=== PATIENT | male | born 1960 | race Caucasian/White ===

== ENCOUNTER → 2023-12-21 07:08 | Outpatient (REF) | payer MEDICARE, OTHER, SELFPAY | LOC: RCS 07:08 | PROVIDERS: ATTENDING PHYSICIAN Internal Medicine Cardiovascular Disease; FAMILY PHYSICIAN Family Medicine | DX: R53.82 Chronic fatigue, unspecified (principal); I10 Essential (primary) hypertension; R55 Syncope and collapse | CPT/HCPCS: 93017 ==

== ENCOUNTER → 2024-01-04 09:13 | Outpatient (REF) | payer MEDICARE, OTHER, SELFPAY | LOC: RCS 09:13 | PROVIDERS: ATTENDING PHYSICIAN Internal Medicine Cardiovascular Disease; FAMILY PHYSICIAN Family Medicine | DX: R53.82 Chronic fatigue, unspecified (principal); I10 Essential (primary) hypertension | CPT/HCPCS: 93306 ==

== ENCOUNTER → 2024-12-17 06:24 | Outpatient (REF) | payer MEDICARE, OTHER, SELFPAY | LOC: RAD 06:24 | PROVIDERS: ATTENDING PHYSICIAN Student in an Organized Health Care Education/Training Program; FAMILY PHYSICIAN Family Medicine | DX: R10.32 Left lower quadrant pain (principal) | CPT/HCPCS: 74177; Q9967 ==

== ENCOUNTER 2025-01-15 06:25 | Day surgery (SDC) | payer MEDICARE, OTHER, SELFPAY | END 2025-01-15 15:24 | disposition home or self-care (01) | LOC: GI 06:25 | PROVIDERS: ATTENDING PHYSICIAN Student in an Organized Health Care Education/Training Program | DX: Z12.11 Encounter for screening for malignant neoplasm of colon (principal); R10.32 Left lower quadrant pain; K57.30 Diverticulosis of large intestine without perforation or abscess without bleeding; K64.8 Other hemorrhoids; D12.2 Benign neoplasm of ascending colon; D12.5 Benign neoplasm of sigmoid colon; K63.5 Polyp of colon; Z86.0100 Personal history of colon polyps, unspecified | CPT/HCPCS: 45385; 88305 ==

== ENCOUNTER 2025-03-04 16:44 | Emergency (ER) | payer MEDICARE, OTHER, SELFPAY ==
[2025-03-04 17:05] VITALS: BP 143/72
[2025-03-04 17:28] LABS: Hematocrit 45.2 % (39.0-52.0); Hemoglobin 14.7 g/dL (13.0-18.0); Mean Corp Hgb Conc. 32.5 g/dL (33.0-37.0); Mean Corpuscular Volume 93.8 fL (80.0-94.0); Nucleated Red Blood Cells % 0 % (-); Platelet Count 195 10^3/uL (130-400); Red Cell Dist. Width 12.9 % (11.5-14.5)
[2025-03-04 17:43] LABS: ALT (SGPT) 41 U/L (0-50); AST (SGOT) 35 U/L (17-59); Albumin 4.9 g/dl (3.5-5.0); Alkaline Phosphatase 64 U/L (38-126); Blood Urea Nitrogen 16 mg/dl (9-20); Calcium 9.8 mg/dl (8.4-10.2); Carbon Dioxide 29 mmol/L (22-30); Chloride 103 mmol/L (98-107); Glucose 112 mg/dl (70-99); Potassium 4.3 mmol/L (3.5-5.1); Sodium 139 mmol/L (135-145); Total Protein 7.2 g/dl (6.3-8.2); eGFR > 60.00
[2025-03-04 17:56] LABS: Troponin I < 0.012 ng/ml
[2025-03-04 18:00] VITALS: BP 133/80
--- NOTE | 2025-03-04 18:49 | ED.GENMED ---
History of Present Illness
General
Chief Complaint: Chest Pain
Source: patient
Exam Limitations: none
Time Seen by Provider: 03/04/25 17:58
History of Present Illness
History of Present Illness:
64-year-old male complaining of midsternal chest pain. Worse with breathing. Started at 10 AM. Has been continuous since 10 AM. No shortness of breath no nausea no diaphoresis no radiation to the back or arms. No history of same. Patient was
working outside prior to this episode.
Past History
Past History
ED Past Medical History: HTN and Hypercholesterolemia
ED Past Surgical History: Orthopedic and Other (Tracheostomy at 1 years of age/Mohs surgery)
Review of Systems
Review of Systems
All Other Systems: Not applicable
Constitutional: Denies fever
ABD/GI: Reports no symptoms
Phy Exam
Physical Exam
Physical Exam:
GENERAL: Alert and oriented in no apparent distress
EYE: Orbits normal.
NECK: Supple
CARDIAC: Regular rate and rhythm without any obvious murmurs. No chest wall tenderness
LUNGS: Clear breath sounds,normal
ABDOMEN: Soft, without focal tenderness or distention
NEUROLOGICAL: Alert and oriented , grossly non-focal
SKIN: Warm and dry, no rash or lesion, no discoloration, skin intact.
MUSCULOSKELETAL: No edema,no deformity.Good color
PSYCH: Normal and appropriate interaction.
Scores
Heart Score for Chest Pain Patients
STEMI patient?: No
History: Slightly or Non-Suspicious
ECG: Normal
Age: >/= 65 years
Risk Factors: 1 or 2 Risk Factors
Troponin: </= Normal Limit
Heart Score for Chest Pain Patients: 3
Heart Score Risk: 2.5% MACE over next 6 weeks
Course
Orders/Labs/Results
Orders:
Orders
03/04/25 16:48
Electrocardiogram (*1) Urgent
Reason for Study: Chest Pain
EKG- Treatment ONCE
03/04/25 17:18
Complete Blood Count/With Diff Urgent
Comprehensive Metabolic Panel Urgent
Troponin I Urgent
03/04/25 18:06
IV Insert/Care/Rem.- Treatment PRN
CXR2 [CR Chest - 2 Views ] Urgent
Comment:
Reason For Exam: Chest pain/short of breath
03/04/25 18:33
D-Dimer Urgent
03/04/25 19:41
Electrocardiogram (*1) Stat
Reason for Study: Other
Other Reason for Exam: chest pain
CT Chest PE Study Urgent
Comment:
Reason For Exam: Pleuritic chest pain
EKG- Treatment ONCE
03/04/25 19:42
Troponin I Urgent
03/04/25 21:03
Ketorolac [Toradol] 15 mg IV NOW STA
Abnormal Lab Results
03/04/25
17:18
MCHC 32.5 L g/dL
(33.0-37.0)
Absolute Neuts (auto) 7.6 H 10^3/uL
(1.4-6.5)
Absolute Monos (auto) 1.5 H 10^3/uL
(0.1-0.6)
Lymphocytes % 14.9 L %
(20.5-51.1)
Monocytes % 13.5 H %
(1.7-9.3)
Glucose 112 H mg/dl
(70-99)
03/04/25 17:18
03/04/25 17:18
Vital Signs
Initial and Last Documented VS:
Initial Vital Signs
Temp Pulse Resp BP Pulse Ox
97.9 F 64 16 143/72 100
03/04/25 17:05 03/04/25 17:05 03/04/25 17:05 03/04/25 17:05 03/04/25 17:05
Last Documented Vital Signs
Temp Pulse Resp BP Pulse Ox
97.9 F 68 12 128/75 95
03/04/25 17:05 03/04/25 21:15 03/04/25 21:15 03/04/25 21:00 03/04/25 21:15
MDM/Problems Addressed
Differential Diagnosis Includes:
Pleuritic like midsternal chest pain continuous since 10 AM. Atypical for cardiac. In no distress. EKG and troponin normal. Will repeat for completeness although again very unlikely to be cardiac. Would also contemplate pulmonary emboli
dissection/pneumothorax. Breath sounds are equal. Will get a chest x-ray. D-dimer pending. Will restratify for the type of CT scan to get.
*Pulse Oximetry
SaO2: 98
Oxygen Mode of Delivery: Room air
Patient hypoxic: no
*EKG
Interpreted by ED Provider?: Yes
Interpretation: abnormal
Comparison EKG: no comparison EKG present
Heart Rate: 58
Rate: bradycardiac
Rhythm: sinus
[place]: normal axis
Interval: normal interval
QRS Pattern: normal QRS
Ischemia: no ischemia
*Critical Care Note
Total Time (30-74mins, 75-104mins- exclusive of procedures): Not Applicable
Update Note
Update Note:
Repeat EKG normal sinus rhythm no acute changes. Repeat troponin negative. CTA negative.
ED Attending Note
-
Portions of this chart may have been created with voice recognition software.� Occasional wrong word or��sound alike� substitutions may have occurred due to the inherent limitations of voice recognition software.
Discharge Plan
Departure
Patient Disposition: Home (Routine Discharge)
Date of Disposition: 03/04/25
Time of Disposition: 21:04
Patient with high blood pressure during this ER visit?: Yes
Discharge Problem:
Anterior chest pain
Instructions: Chest pain (DC)
Referrals:
UNKNOWN - PT DOES,NOT KNOW [Unknown Provider]
Activity Restrictions/Additional Instructions:
Keep your follow-up appoint with your health insurance sales agent in the morning
Interventions
Interventions:
*Risk Screen - Suicide Last Done: 03/04/25 18:35
*General Assessment Last Done: 03/04/25 18:34
*Neglect/Abuse Screening Last Done: 03/04/25 18:34
*ED COVID-19 Vaccine History Last Done: 03/04/25 18:34
*ED Influenza Vaccine History Last Done: 03/04/25 18:34
*Nursing Disposition Last Done: 03/04/25 21:20
ED- Cardiac Assessment Last Done: 03/04/25 18:35
Discharge Date and Time
Discharge Date/Time: 03/04/25 21:20
Print Language: DUTCH
[2025-03-04 19:26] VITALS: BP 126/81
[2025-03-04 19:33] LABS: D-Dimer 0.30 ug/mlFEU (0.00-0.50)
[2025-03-04 20:10] VITALS: BP 140/83
[2025-03-04 20:16] LABS: Troponin I < 0.012 ng/ml
[2025-03-04 21:00] VITALS: BP 128/75
[2025-03-04] MEDS: TORADOL 15 MG IV (21:06)
== END 2025-03-04 21:20 | disposition home or self-care (01) ==
LOC: EMR 16:44
PROVIDERS: EMERGENCY PHYSICIAN Emergency Medicine; FAMILY PHYSICIAN Family Medicine
DX: R07.89 Other chest pain (principal); R00.1 Bradycardia, unspecified; I10 Essential (primary) hypertension; E78.00 Pure hypercholesterolemia, unspecified
CPT/HCPCS: 99284; 96374; 71046; 71275; 80053; 84484; 85025; 85379; 93005; Q9967